=== PATIENT | female | born 1950 | race Caucasian/White ===

== ENCOUNTER 2020-03-09 05:14 | Day surgery (SDC) | payer BC ==
[2020-03-08 14:12] VITALS: BMI 22.8
[2020-03-09] MEDS ORDERED: ceFAZolin SODIUM 1 GM VIAL ONE (06:51)
[2020-03-09] MEDS ORDERED: PHENAZOPYRIDINE HCL 100 MG TABLET (FP) PO ONE (07:00)
[2020-03-09] MEDS ORDERED: MIDAZOLAM HCL 2 MG/2 ML SINGLE DOSE VIAL ONE ×3 (07:13→07:39)
[2020-03-09] MEDS ORDERED: BUPIVACAINE LIPOSOME/PF (EXPAREL) 266 MG/20 ML VIAL ONE (07:22)
[2020-03-09] MEDS ORDERED: SUCCINYLCHOLINE CHLORIDE 200 MG/10 ML SYRINGE ONE (07:39)
[2020-03-09] MEDS ORDERED: PROPOFOL 20 ML ONE ×2 (07:39)
[2020-03-09] MEDS ORDERED: ROCURONIUM BROMIDE 50 MG/5 ML SYRINGE ONE ×2 (07:39→08:28)
[2020-03-09] MEDS ORDERED: fentaNYL CITRATE 250 MCG/5 ML VIAL ONE (07:39)
[2020-03-09] MEDS ORDERED: ceFAZolin SODIUM 1 GM VIAL IVPB ONE (07:45)
[2020-03-09] MEDS ORDERED: CEFAZOLIN 2 GM in DEXTROSE 5%-WATER - 100 ML IVPB ONE (08:00)
[2020-03-09] MEDS ORDERED: NEOSTIGMINE METHYLSULFATE 0.5 MG/ML - 10 ML MDV ONE (10:05)
[2020-03-09] MEDS ORDERED: SIMETHICONE 80 MG TAB.CHEW (FP) PO PRN (10:23)
[2020-03-09] MEDS ORDERED: BISACODYL 5 MG TABLET.DR (FP) PO PRN (10:23)
[2020-03-09] MEDS ORDERED: oxyCODONE HCL 5 MG TABLET PO PRN ×2 (10:23)
[2020-03-09] MEDS ORDERED: ONDANSETRON 4 MG/2 ML VIAL IVPUSH PRN (10:23)
[2020-03-09] MEDS ORDERED: ACETAMINOPHEN 325 MG TABLET (FP) PO PRN (10:23)
[2020-03-09] MEDS ORDERED: DOCUSATE SODIUM 100 MG CAPSULE (FP) PO PRN (10:23)
[2020-03-09] MEDS ORDERED: IBUPROFEN 800 MG/8 ML IJ IVPB PRN (10:23)
[2020-03-09] MEDS ORDERED: LACTATED RINGERS SOLUTION 1,000 ML IV SCH (12:15)
[2020-03-09 18:30] LABS: HEMATOCRIT 41.5 % (32.4-45.2); HEMOGLOBIN 13.8 GM/dL (10.7-15.3); MCH 30.2 pg (25.7-33.7); MCHC 33.3 g/dl (32.0-36.0); MEAN CELL VOLUME 90.7 fl (80-96); MEAN PLT VOLUME 8.5 fl (7.5-11.1); PLATELET COUNT 219 K/MM3 (134-434); RBC 4.57 M/mm3 (3.60-5.2); RDW 13.1 % (11.6-15.6); WHITE BLOOD COUNT 12.6 K/mm3 (4.0-10.0)
[2020-03-09] MEDS: CEFAZOLIN 1 GM/D5W 1 GM/50 ML BAG IVPB SCH (18:50)
[2020-03-09 19:06] LABS: POTASSIUM 4.1 mmol/L (3.5-5.1)
[2020-03-09 19:07] LABS: CALCIUM 8.3 mg/dL (8.5-10.1)
[2020-03-09 19:08] LABS: BLOOD UREA NITROGEN 11.4 mg/dL (7-18)
[2020-03-09 19:11] LABS: CREATININE 0.7 mg/dL (0.55-1.3)
[2020-03-09] MEDS ORDERED: ATORVASTATIN CA 10 MG TABLET (FP) PO SCH (22:00)
[2020-03-10] MEDS: CEFAZOLIN 1 GM/D5W 1 GM/50 ML BAG IVPB SCH ×2 (01:15→09:15)
[2020-03-10] MEDS ORDERED: metFORMIN HCL 500 MG TABLET (FP) PO SCH (07:00)
[2020-03-10 07:58] LABS: HEMATOCRIT 36.8 % (32.4-45.2); HEMOGLOBIN 12.2 GM/dL (10.7-15.3); MCH 29.7 pg (25.7-33.7); MCHC 33.1 g/dl (32.0-36.0); MEAN CELL VOLUME 89.7 fl (80-96); MEAN PLT VOLUME 8.3 fl (7.5-11.1); PLATELET COUNT 206 K/MM3 (134-434); RBC 4.11 M/mm3 (3.60-5.2); RDW 12.8 % (11.6-15.6); WHITE BLOOD COUNT 11.2 K/mm3 (4.0-10.0)
[2020-03-10 08:09] LABS: POTASSIUM 3.7 mmol/L (3.5-5.1)
[2020-03-10 08:10] LABS: CALCIUM 8.3 mg/dL (8.5-10.1)
[2020-03-10 08:11] LABS: BLOOD UREA NITROGEN 8.5 mg/dL (7-18)
[2020-03-10 08:14] LABS: CREATININE 0.5 mg/dL (0.55-1.3)
[2020-03-10] MEDS ORDERED: ENOXAPARIN NA (PORCINE) 40 MG/0.4 ML DISP.SYRIN SQ SCH (10:00)
[2020-03-10 10:13] VITALS: BP 96/58; PULSE 69; TEMP 98
== END 2020-03-10 10:55 | disposition home or self-care (01) ==
LOC: JASUSAT 05:14 → J3W 13:47 → JASUSAT 03-10 10:55
PROVIDERS: ATTEND Obstetrics & Gynecology
PROC: 0UT7FZZ Resection of Bilateral Fallopian Tubes, Via Natural or Artificial Opening With Percutaneous Endoscopic Assistance (ICD-10-PCS; 2020-03-09)
PROC: 0UT9FZZ Resection of Uterus, Via Natural or Artificial Opening With Percutaneous Endoscopic Assistance (ICD-10-PCS; principal; 2020-03-09 07:30)
PROC: 0UT2FZZ Resection of Bilateral Ovaries, Via Natural or Artificial Opening With Percutaneous Endoscopic Assistance (ICD-10-PCS; 2020-03-09 07:30)
DX: N81.4 Uterovaginal prolapse, unspecified (principal)
CPT/HCPCS: 36415; 80048; 82962; 85027; 86850; 86900; 86901; 88305-TC; 94760